=== PATIENT | female | born 1950 | race Caucasian/White ===

== ENCOUNTER 2023-12-18 12:53 | Emergency (ER) | payer MEDICARE, SELFPAY ==
--- NOTE | ~2023-12-18 | XR_ITS ---
EXAMINATION: XR chest 2V DATE: 12/18/2023 13:36 INDICATION: Cough. TECHNIQUE: Frontal and lateral views of the chest were obtained. COMPARISON: None. FINDINGS: There is mild scarring at the lung apices. No pleural effusion or pneumothorax. The heart s ize is normal. There is mild chronic height loss of multiple vertebral bodies. IMPRESSION: 1. Mild scarring at the lung apices. Reviewed, dictated and finalized at location E.
--- NOTE | 2023-12-18 12:59 | ED.URI ---
HPI - URI/Sore Throat General Chief Complaint: Shortness of Breath/Dyspnea Stated Complaint: SOB/Wheezing Time Seen by Provider: 12/18/23 13:07 Source: patient, RN notes reviewed and old records reviewed Mode of arrival: ambulatory Limitations: no limitations History of Present Illness HPI Narrative: 73-year-old female presents to the [facility] with complaints of cough, shortness of breath and wheezing. States that she started not feeling well about a week ago. And started with a cough and took a azithromycin tri pack. Reports the cough has been dry. Reports Tuesday she had a low-grade fever 100.2 and some chills continue to having dry cough. States today she is not feeling any better, finish the tri pack Still reporting a dry nonproductive cough Treatments prior to arrival: ibuprofen and other (Azithromycin) Related Data Home Medications Medication Instructions Recorded Confirmed alprazolam 0.25 mg tablet 0.25 mg PO DAILY 12/18/23 12/18/23 latanoprost 0.005 % eye drops 1 drp EACH EYE HS 12/18/23 12/18/23 levothyroxine 75 mcg tablet 75 mcg PO DAILY 12/18/23 12/18/23 (Synthroid) metoprolol succinate 50 mg 50 mg PO DAILY 12/18/23 12/18/23 tablet,extended release 24 hr pantoprazole 40 mg tablet,delayed 40 mg PO DAILY 12/18/23 12/18/23 release Allergies Allergy/AdvReac Type Severity Reaction Status Date / Time No Known Allergies Allergy Verified 12/18/23 12:56 Review of Systems Review of Systems: All systems reviewed & are unremarkable except as noted in HPI and below Constitutional: Constitutional: Reports no additional constitutional complaints Eyes: Eyes: Reports no additional eye complaints ENT: Reports system reviewed and no additional complaints, except as documented Cardiovascular: Cardiovascular: Reports no additional cardiovascular complaints, Denies chest pain and Denies dyspnea Respiratory: Respiratory: Reports as per HPI, Denies chest congestion, Reports cough and Denies dyspnea Gastrointestinal: Gastrointestinal: Reports no additional gastrointestinal complaints, Denies abdominal pain, Denies nausea and Denies vomiting Musculoskeletal: Musculoskeletal: Reports no additional musculoskeletal complaints Integumentary/Breasts: Skin/Breast: Reports system reviewed and no additional complaints, except as docu Neurologic: Reports system reviewed and no additional complaints, except as documented Psychiatric: Psychiatric: Reports no additional psychiatric complaints Allergic/Immunologic: Allergic/Immunologic: Reports no additional allergic/immunologic complaints [facility] Past Medical History Medical History (Updated 12/18/23 @ 17:13 by Maia Osuna APRN) Anxiety H/O gastroesophageal reflux (GERD) Thyroid disease Comments At the time of my signature, I reviewed and agree with the nursing past medical, surgical, social, and family history. There is no relevant family history pertinent to the patient complaint. Exam Const: General: cooperative, healthy appearing, comfortable, no acute distress, well developed, alert and well nourished Nutritional Appearance: well nourished Orientation/consciousness: patient oriented x3 Limitations: no limitations HENMT: Head: normal to inspection Ears: hearing grossly normal bilaterally, external ears normal, TM's normal bilaterally, EAC's normal, mastoids normal and no periauricular adenopathy Face/Nose/Sinus: Normal external nose present, Normal nares present, Normal nasal mucous membranes and turbinates present, normal facial exam and face symmetric Face and sinus: normal facial exam and face symmetric Throat: posterior oropharynx normal, uvula midline and no uvular edema Eyes: General: appearance normal, both eyes and all related structures Alignment and Position: alignment normal Periorbital: periorbital findings normal Pupils: Equal, round and reactive pupils present EOM: EOMs intact bilaterally Neck: Neck: normal visual inspection, ful
[2023-12-18 13:05] VITALS: BP 170/79; PULSE 62; RESP 18; TEMP 36.6; O2SAT 97
== END 2023-12-18 13:55 | disposition home or self-care (01) ==
PROVIDERS: Emergency Provider Nurse Practitioner; PCP Internal Medicine
DX: J40 Bronchitis, not specified as acute or chronic (principal); K21.9 Gastro-esophageal reflux disease without esophagitis; F41.9 Anxiety disorder, unspecified; E03.9 Hypothyroidism, unspecified; I10 Essential (primary) hypertension; Z96.653 Presence of artificial knee joint, bilateral
CPT/HCPCS: 71046; 99213; G0463

== ENCOUNTER 2024-12-07 08:09 | Emergency (ER) | payer MEDICARE, OTHER, SELFPAY ==
--- NOTE | ~2024-12-07 | XR_ITS ---
Clinical Indication: Cough PA and lateral views of the chest: Comparison: 12/18/2023 Findings: The lungs are clear, without evidence of focal consolidation or pleural effusion. Cardiome diastinal silhouette is within normal limits. Bones and soft tissues are unremarkable. Impression: Normal chest. Reviewed, dictated and finalized at location . Impression: Normal chest.
--- NOTE | 2024-12-07 08:10 | ED_ITS ---
HPI - URI/Sore Throat General Chief Complaint: Upper Respiratory Infection Stated Complaint: cold like Time Seen by Provider: 12/07/24 08:21 Source: patient, RN notes reviewed and old records reviewed Mode of arrival: ambulatory Limitations: no limitations History of Present Illness HPI Narrative: 74-year-old female presents to the [facility] with complaints of a cough and cold-like symptoms that started last tuesday, 5 days. Patient states that she took a Z-Cheng that she had laying around. Reports fevers as high as 99.6. Patient reports wheezing and drainage. Related Data Home Medications Medication Instructions Recorded Confirmed Last Taken Type alprazolam 0.25 mg tablet 0.25 mg PO DAILY 12/18/23 12/07/24 Unknown History latanoprost 0.005 % eye drops 1 drp EACH EYE HS 12/18/23 12/07/24 Unknown History levothyroxine 75 mcg tablet 75 mcg PO DAILY 12/18/23 12/07/24 Unknown History (Synthroid) metoprolol succinate 50 mg 50 mg PO DAILY 12/18/23 12/07/24 Unknown History tablet,extended release 24 hr pantoprazole 40 mg tablet,delayed 40 mg PO DAILY 12/18/23 12/07/24 Unknown History release Allergies Allergy/AdvReac Type Severity Reaction Status Date / Time No Known Allergies Allergy Verified 12/07/24 08:10 Review of Systems Review of Systems: All systems reviewed & are unremarkable except as noted in HPI and below Constitutional: Constitutional: Reports no additional constitutional complaints ENT: Reports as per HPI Cardiovascular: Cardiovascular: Reports no additional cardiovascular complaints, Denies chest pain and Denies dyspnea Respiratory: Respiratory: Reports as per HPI, Denies chest congestion, Reports cough, Denies dyspnea and Reports wheezing Musculoskeletal: Musculoskeletal: Reports no additional musculoskeletal complaints Integumentary/Breasts: Skin/Breast: Reports system reviewed and no additional complaints, except as docu PMFSH Past Medical History Medical History H/O gastroesophageal reflux (GERD) Anxiety Thyroid disease Comments At the time of my signature, I reviewed and agree with the nursing past medical, surgical, social, and family history. There is no relevant family history pertinent to the patient complaint. Exam Const: General: cooperative, healthy appearing, comfortable, no acute distress, well developed, alert and well nourished Nutritional Appearance: well nourished Orientation/consciousness: patient oriented x3 Limitations: no limitations HENMT: Head: normal to inspection Ears: hearing grossly normal bilaterally, external ears normal, TM's normal bilaterally, EAC's normal, mastoids normal and no periauricular adenopathy Mouth: Yes Normal oral and palatal mucosa present, Yes lip normal, Yes tongue normal and Yes moist mucous membranes Throat: posterior oropharynx normal, uvula midline, postnasal drainage and no uvular edema Eyes: General: appearance normal, both eyes and all related structures Alignment and Position: alignment normal Neck: Neck: normal visual inspection, full ROM, no lymphadenopathy and no meningeal signs Chest: Chest palpation & inspection: normal inspection of the chest Resp: Effort & Inspection: normal respiratory effort and able to speak in complete sentences Auscultation: no crackles, no rales, no rhonchi and wheezes expiratory wheezes and scattered wheezes Cardio: Rate: regular rate Skin: General skin exam: normal color and no rashes or lesions noted Neuro: General: patient oriented x3, gait normal, moves all extremities and no meningeal signs Cognition (Neuro): normal cognition Speech: normal speech Gait exam (Neuro): Normal gait present Extrem: General: normal to inspection, full ROM, capillary refill normal and normal gait Psych: Appearance: grossly normal and well kempt Mental Status: mental status grossly normal Speech and movement: Normal speech and movement present and Clear speech present Affect: normal affect Attitude: cooperative Course Course Level of Care: Express Care Visit Vital Signs Vital signs: Vital Signs Temperature 98.4 F 12/07/24 08:19 Pulse Rate 78 12/07/24 08:19 Respiratory Rate 16 12/07/24 08:19 Blood Pressure 144/66 H 12/07/24 08:19 Pulse Oximetry 94 12/07/24 08:19 Oxygen Delivery Room Air 12/07/24 08:19 Temperature 98.4 F 12/07/24 08:19 Pulse Rate 78 12/07/24 08:19 Respiratory Rate 16 12/07/24 08:19 Blood Pressure 144/66 H 12/07/24 08:19 Pulse Oximetry 94 12/07/24 08:19 Oxygen Delivery Room Air 12/07/24 08:19 Reviewed MDM - URI/Sore Throat MDM Narrative Medical decision making narrative: Patient sitting in exam room. Patient is nontoxic, vitals are stable. X-ray showed no acute finding. Patient has already taken azithromycin Will prescribe albuterol and prednisone. Patient appropriate for outpatient treatment with close follow-up Differential Diagnosis Differential diagnosis: Likely upper respiratory infection, otitis media, sinusitis, viral infection, bronchitis, influenza and pharyngitis Imaging Data Radiologist's impression: Clinical Indication: Cough PA and lateral views of the chest: Comparison: 12/18/2023 Findings: The lungs are clear, without evidence of focal consolidation or pleural effusion. Cardiomediastinal silhouette is within normal limits. Bones and soft tissues are unremarkable. Impression: Normal chest. Critical Care Time Critical Care Time Critical Care Time: No Discharge Plan Discharge Clinical Impression: Bronchitis Patient Disposition: Home Condition: Stable Instructions: Antibiotic Form, Acute Bronchitis (ED) Additional Instructions: Your chest x-ray did not show pneumonia. It is very important to treat your symptoms. Drink plenty of water, Gatorade, Pedialyte, ice pops or Jell-O. -Alternate Tylenol and Motrin per package directions for fever or pain. You can alternate every 4 hours -Antihistamine medication such as Zyrtec/Claritin/Dianne during the day can help improve symptoms. -doing daily nasal irrigations can help relieve pressure your sinuses. Things like a Neti pot -Use Flonase twice a day for 5 days then daily to help reduce the inflammation and dry up your sinuses. -You can also use Mucinex. Be sure to drink plenty of water with this medication at least 8 ounces with every dose and it is important to drink 8 to 10 glasses of water per day. Water is a natural decongestant -Eat and drink things that are easy to swallow, like tea or soup, or popsicles. -Oral rinses such as: Salt water gargles and/or may use topical anesthetic (eg. Chloraseptic spray) or lozenges to relieve dryness or throat pain). -Frequent hand washing or hand solution make up operator is one of the best ways to prevent spread of infection. -Using a vaporizer or humidifier at night will also help thin secretions and help with coughing up phlegm. -Follow up with primary care provider in 7-10 days if condition is not improving - For new or worsening symptoms go directly to the nearest ER Patient Language: Venezuelan Prescriptions: New prednisone 20 mg tablet See Rx Instructions .Route .COMPLEX Qty: 9 0RF Rx Instructions: Take 40 mg daily for 3 days, 20 mg daily for 3 days albuterol sulfate 90 mcg/actuation HFA aerosol inhaler 2 puff inhalation QID PRN (Reason: shortness of breath or wheezing) Qty: 6.7 0RF (DME) Aerochamber MV Spacer See Rx Instructions .Route Qty: 1 0RF Rx Instructions: As directed No Action latanoprost 0.005 % drops 1 drp EACH EYE HS alprazolam 0.25 mg tablet 0.25 mg PO DAILY metoprolol succinate 50 mg tablet extended release 24 hr 50 mg PO DAILY levothyroxine [Synthroid] 75 mcg Tablet 75 mcg PO DAILY pantoprazole 40 mg tablet,delayed release (DR/EC) 40 mg PO DAILY Follow-up/Referrals: Nita,Cortez Castañeda MD [Primary Care Provider] - 1 Week ([facility] care follow up blood pressure check 144/66) Time of Disposition: 08:55
--- OUTSIDE RECORDS SUMMARY | 2024-12-07 08:11 | XMS_ITS | CONTINUITY OF CARE DOCUMENT ---
Author Name veronica martin Address Unknown Organization [facility] Address [address] [place] [address] [address] [place] [address] Phone [phone] Care Team Providers Care Lifestyle Block Farmer Name Role Phone veronica martin Unavailable Unavailable
--- OUTSIDE RECORDS SUMMARY | 2024-12-07 08:11 | XMS_ITS | Clinical Summary ---
Author Organization [facility] Address [address] [place] [address] Phone Care Team Providers Care Low Pressure Boiler Tender Name Role Phone Cortez Moya MD Primary Care Provider [phone] Encounters Date Type Department Care Team Description 12/04/2024 External Device Data ST[facility] ABSTRACTION Provider, Abstract 11/27/2024 11:15 AM CDT Ancillary Procedure [facility] [address] [place] [address] Cortez Moya MD Encounter for screening mammogram for breast cancer 09/12/2024 External Device Data STL ABSTRACTION Provider, Abstract from Last 3 Months Social History Tobacco Use Types Packs/Day Years Used Date Smoking Tobacco: Never Assessed Comments Unknown Sex and Gender Information Value Date Recorded Sex Assigned at Not on file Legal Sex Female 1:27 PM CDT Gender Identity Not on file Sexual Orientation Not on file Plan of Treatment Health Maintenance Due Date Last Done Comments DTAP/TDAP/TD VACCINES (1 - Tdap) 1969 COLORECTAL SCREENING 11/01/1995 Colorectal Cancer Screening 11/01/1995 FIT-DNA Q 3 years 11/01/1995 FIT/FOBT Q 1 year 11/01/1995 Flex Sig/CT Colonography Q 5 years 11/01/1995 PNEUMOCOCCAL VACCINE 50+ YEA RS (1 of 1 - PCV) 2000 INFLUENZA VACCINE (#1) 2024 , 05/06/2020, 05/03/2018, Additional history exists COVID-19 Vaccine (2023-2 5 season) 2024 09/30/2020, 08/28/2020 RSV VACCINE (60+ or ) (1 - 1-dose 75+ series) 2025 BREAST CANCER SCREENING 11/27/2025 11/28/19, 09/16/2023, 07/06/2022, Additional history exists OSTEOPOROSIS SCREENING 11/16/2026 11/16/2021, 2021 ZOSTER VACCINE Completed 03/24/2019, 11/22, 02/07/2017 Procedures Procedure Name Priority Date/Time Associated Diagnosis Comments MAMMO 3D SHELLIE SCREEN BILAT W OR WO CAD Routine 11/27/2024 10:55 AM CDT Encounter for screening mammogram for breast cancer from Last 3 Months Results * MAMMO 3D SHELLIE SCREEN BILAT W OR WO CAD (11/27/2024 10:55 AM CDT) Anatomical Region Laterality Modality Breast Bilateral Mammography 11/27/2024 10:5 6 AM CDT Narrative 11/27/2024 11:03 AM CDT EXAM: MAMMO 3D SHELLIE SCREEN BILAT W OR WO CAD DATE: 11/27/2024 HISTORY: Encounter for screening mammogram for breast cancer COMPARISON: 09/16/2023 DENSITY: Scattered fibroglandular densities. FINDINGS: Bilateral screening mammograms with tomosynthesis were performed with standard CC and MLO views obtained. Computer assisted detection was utilized. Little significant change is noted. The parenchymal pattern is essentially unchanged. Scattered nodular masses in both breasts appear stable in size and number. There are also stable bilateral breast calcifications including secretory calcifications. No new dominant mass, architectural distortion, nipple retraction, skin thickening, or suspicious calcifications are seen. ASSESSMENT: BIRADS Category 2: Benign finding(s). Digital technology was employed plus computer-aided detection software was utilized in interpretation of these images. us Cortez Moya MD MAMMO ORDERABLES Final Result from Last 3 Months Insurance [id number] BLUE ACCESS/TRUE BLUE PPO MEDICARE PART A AND B [facility] SUPP [facility] [id number] [facility] Care Teams Low Pressure Boiler Tender Relationship Specialty Start Date End Date Cortez Moya MD [facility] - General 07/11/15
--- OUTSIDE RECORDS SUMMARY | 2024-12-07 08:11 | XMS_ITS | Encounter Summary ---
Author Organization [facility] Address [address] [place] [address] Care Team Providers Care Print Binding And Finishing Worker Name Role Phone Cortez Moya MD Primary Care Provider Encounter Details Date Type Department Care Team (Late st Contact Info) Description 11/28/2024 Results Follow-Up [facility] [address] [address] Cortez Moya MD [address] [place] [address] [address] [place] [address] Social History Tobacco Use Types Packs/Day Years Used Date Smoking Tobacco: Former Cigarettes 0.5 13 1 967 - 1980 Passive Smoke Exposure: Past Smokeless Tobacco: Never Alcohol Use Standard Drinks/Week Comments Yes 5 (1 standard drink = 0.6 oz pur e alcohol) AUDIT-C Answer Date Recorded Q1: How often do you have a drink containing alc ohol? 2-3 times a week 12/01/2022 Q2: How many drinks containi ng alcohol do you have on a typical day when you are drinking? 1 or 2 12/01/2022 Q3: How often do you have si x or more drinks on one occasion? Never 12/01/2022 Personal Safety Answer Date Recorded Have you ever been in or are you currently in a harmful physical or emotional relationship or is someone making you feel afraid or unsafe? Denies 12/01/2022 Comments No Sex and Gender Information Value Date Recorded Sex Assigned at Not on file Legal Sex Female 9:03 PM QUALITY CONTROL INSPECTOR HEADING Gender Identity Female 05/27/2021 3:39 PM CDT Sexual Orientation Straight 05/27/2021 3: 39 PM CDT Occupation Industry Job Start Date Job End Date retired Not on file Not on file Not on file documented as of this encounter Plan of Treatment Not on file documented as of this encounter Visit Diagnoses Not on filedocumented in this encounter Care Teams Print Binding And Finishing Worker Relationship Specialty Start Date End Date Cortez Moya MD PCP - General 11/17/17 documented as of this encounter
--- OUTSIDE RECORDS SUMMARY | 2024-12-07 08:11 | XMS_ITS | Encounter Summary ---
Author Organization [facility] Address [address] [place] [address] Care Team Providers Care Usability Architect Name Role Phone Unavailable Primary Care Provider Unavailabl e Encounter Details Date Type Department Care Team (Late st Contact Info) Description 07/14/2023 Lab Requisition [facility] - [facility] Lab [address] [facility] [place] [address] Linda Lombardi DO [address] [facility] [address] [place] [address] Social History Tobacco Use Types Packs/Day Years Used Date Smoking Tobacco: Never Assessed Comments Unknown Sex and Gender Information Value Date Recorded Sex Assigned at Not on file Legal Sex Female 6:25 PM AIRWAYS OPERATIONS SPECIALIST Gender Identity Not on file Sexual Orientation Not on file documented as of this encounter Plan of Treatment Not on file documented as of this encounter Procedures Procedure Name Priority Date/Time Associated Diagnosis Comments DERMATOPATHOLOGY Routine 07/14/2023 9:36 AM AIRWAYS OPERATIONS SPECIALIST documented in this encounter Results * DERMATOPATHOLOGY (07/14/2023 9:36 AM AIRWAYS OPERATIONS SPECIALIST) Case Report Dermatopathology Report Case: [id number] Authorizing Provider: Linda Lombardi DO Collected: 07/14/2023 09:36 AM Ordering Location: [facility] Received: 07/14/2023 04:05 PM Pathologist: Angella Richardson MD Specimen: Skin, right upper back 3 12:49 PM AIRWAYS OPERATIONS SPECIALIST DERMATOPATHOLOGY LABORATORY Final Diagnosis Specimen A. SKIN, right upper back: LICHEN PLANUS-LIKE KERATOSIS (BENIGN LICHENOID KERATOSIS) (L82.1) 3 12:49 PM AIRWAYS OPERATIONS SPECIALIST DERMATOPATHOLOGY LABORATORY Clinical History LPLK R/O NMSC 3 12:49 PM [facility] DERMATOPATHOLOGY LABORATORY Gross Description Specimen A: Received is one formalin filled container labeled with the patient's name and designated right upper back. The specimen consists of a shave biopsy measuring 3x3x1 mm. Jar 0. 3 12:49 PM [facility] DERMATOPATHOLOGY LABORATORY Microscopic Description Specimen A. SKIN, right upper back: The epidermis is mildly acanthotic. There is a lichenoid infiltrate with vacuolar changes of basilar keratinocytes and scattered necrotic keratinocytes. 3 12:49 PM [facility] DERMATOPATHOLOGY LABORATORY Disclaimer An external and internal positive and negative controls are appropriate for the histochemical, immunohistochemical and immunofluorescence stain(s) in this case (if any), except where stated explicitly. The performance characteristics of the stain(s) cited in this report were developed and its performance characteristic determined by the Dermatopathology Laboratory at [facility], directed by Dr. Jodee Stewart. These tests need not be, and therefore are not, approved by the [place] Food and Drug Administration. The tests are used for clinical purposes. Billing Codes Specimen Charges Stain Charges 64954 1 3 12:49 PM [facility] DERMATOPATHOLOGY LABORATORY Embedded Images 3 12:49 PM [facility] DERMATOPATHOLOGY LABORATORY Pathology/Cytolo gy TISSUE SPECIMEN FROM SKIN / Unknown 07/14/2023 9:36 AM AIRWAYS OPERATIONS SPECIALIST 07/14/2023 4:05 PM AIRWAYS OPERATIONS SPECIALIST us Linda Lombardi DO LAB - PATHOLOGY/CYTOLOGY ORDERABLES Final Result DERMATOPATHOLOGY LABORATORY [facility] - Department of Dermatology [address] [phone] documented in this encounter Visit Diagnoses Not on filedocumented in this encounter
--- OUTSIDE RECORDS SUMMARY | 2024-12-07 08:11 | XMS_ITS | Clinical Summary ---
Author Organization [facility] Address [address] [place] [address] Care Team Providers Care Security Guards Dispatcher Name Role Phone Cortez Moya MD Primary Care Provider [phone] Allergies No known active allergies Medications latanoprost (XALATAN) 0.005 % ophthalmic solutionIndicat ions:open angle glaucoma Administer 1 drop into both eyes nightly 9 Active Lactobac no.41/Bifidobac t no.7 (PROBIOTIC-10 ORAL)Indication s:supplement Take 1 capsule by mouth every morning Active cholecalciferol (VITAMIN D-3) 2,000 unit tabletIndicatio ns:Prevention of Vitamin D Deficiency Take 3 tablets (6,000 Units total) by mouth every morning Active ascorbic acid (VITAMIN C ORAL)Indication s:supplement Take 1 tablet by mouth every morning Active vitamin b complex tabletIndicatio ns:Vitamin Deficiency Take 1 tablet by mouth every morning Active metoprolol XL (TOPROL-XL) 50 mg extended release tablet TAKE 1 TABLET DAILY 90 tablet [address] (PROTONIX) 40 mg EC tablet TAKE 1 TABLET DAILY 90 tablet 3 4 Active Synthroid 75 mcg tablet TAKE 1 TABLET BUFFER COPPER BEFORE BREAKFAST 90 tablet 2 4 Active ALPRAZolam (XANAX) 0.25 mg tablet Take 1 tablet (0.25 mg total) by mouth 2 (two) times a day 180 tablet 4 Active azithromycin (ZITHROMAX) 250 mg tabletIndicatio ns:Upper Respiratory/MANDIE NT Infection Take 2 tabs (500 mg) by mouth today, than 1 tab (250 mg) daily for 4 days. 6 tablet 5 Active Active Problems Problem Noted Date Diagnosed Date Lumbar radiculopathy 05/17/2023 Assessment & Plan (11/29/2023 10:29 AM CDT): Doing better with exercise and stretching. Continues to ride a bike. Myogenic ptosis of eyelid of both eyes 3 Overview (11/03/2022): Added automatically from request for surgery [id number] Assessment & Plan (01/17/2023 10:22 PM CDT): Krystal Roy is doing well after Bilateral Upper Eyelid Ptosis Repair - Bilateral on 12/01/2022. She demonstrates excellent healing and has been released from my care and has been instructed to continue comprehensive eye care with Dr. Shorty Jones MD. Assessment & Plan (11/10/2022 9:00 PM CDT): Bilateral upper eyelid ptosis with symptomatic visual obstruction. Risks, benefits and alternatives were discussed. Risks of surgery included but were not limited to pain, infection, bleeding, scarring, eyelid asymmetry, need for additional procedures, anesthetic morbidity. Following this discussion, the patient wishes to proceed with bilateral upper eyelid ptosis repair. We will schedule this in the near future. Peripheral visual field defect of both eyes 10/23 Overview (11/03/2022): Added automatically from request for surgery [id number] HTN (hypertension) 01/27/2021 Assessment & Plan (11/29/2023 10:29 AM CDT): BP at target. Continue medication for target directed therapy Hypothyroidism 01/27/2021 Assessment & Plan (11/29/2023 10:30 AM CDT): Check labs. No signs or symptoms of thyroid disease Risk factors for obstructive sleep apnea 021 History of arthroplasty of right knee 01/13/2021 Chronic pain of left knee 01/13/2021 Primary osteoarthritis of left knee 01/12/2021 Overview (01/12/2021): Added automatically from request for surgery [id number] Primary osteoarthritis of right knee 08/06/2019 Overview (08/06/2019): Added automatically from request for surgery [id number] External hemorrhoids 07/03/2015 Hemorrhoids 07/03/2015 Dysphonia 10/09/2014 Assessment & Plan (11/29/2023 10:29 AM CDT): Stable without change. Constipation 06/26/2012 Internal hemorrhoids with complication 1 Encounters Date Type Department Care Team Description 11/28/2024 Results Follow-Up [facility] [address] [place] [id number] Cortez Moya MD 11/27/2024 Orders Only [facility] [address] [place] [facility] [place] [id number] Cortez Moya MD from Last 3 Months Immunizations Immunization Administration Dates Next Due Influenza, Quadrivalent, Hig h Dose, Preservative Free, Intrr 04/17/2021,05/06/2020 Influenza, Trivalent, High D ose, Split, Preservative Free, Intramuscular 05/03/2018,05/29/2017,05/29/2015,04/25 Influenza, Trivalent, Preser vative Free, Intramuscular 04/23/2016 Influenza, Unspecified 04/27/2023 Moderna SARS-CoV-2 Monovalen t Vaccination (12+ YRS) 09/30/2020,08/28/2020 ZOSTER LIVE 02/07/2017 ZOSTER Recombinant 03/24/2019,12/05/2018 Surgical History Surgery Date Site/Laterality Comments PA APPENDECTOMY 07/25/1999 - 07/24/2000 Appendectomy - (Added by TW Conv) HYSTERECTOMY 07/25/2008 - 07/24/2009 Total Hysterectomy - (Added by TW Conv) CHOLECYSTECTOMY 07/25/1997 - 07/24/1998 BUNIONECTOMY 07/25/2008 - 07/24/2009 Bilateral TONSILLECTOMY 07/25/1956 - 07/24/1957 JOINT REPLACEMENT 05/25/2021 Right partial KNEE ARTHROPLASTY 01/22/2021 Left patial CATARACT EXTRACTION 06/09/2022 Left PARTIAL KNEE ARTHROPLASTY 10/22/2019 Right CATARACT EXTRACTION 06/30/2022 Right CHOLECYSTECTOMY 07/25/1997 - 07/24/1998 Medical History Medical History Date Comments Diverticulosis of intestine without perforation or abscess without bleeding Diverticular d isease - (Added by TW Conv) Anxiety Gastric reflux Hiatal hernia Hypertension Thyroid disease Osteoporosis OA (osteoarthritis) GERD (gastroesophageal reflux disease) Spasmodic dysphonia Hiatal hernia Essential tremor manifest in voi ce Family History Medical History Relation Name Comments Arthritis Father Diabetes Father Heart disease Father Family history of cardiac disorder - (Added by TW Conv) Arthritis Mother Diabetes Mother Essential Tremor Mother Family hist ory of benign essential tremor - (Added by TW Conv) Gout Mother Heart disease Mother Family history of cardiac disorder - (Added by TW Conv) Hypertension Mother Stroke Mother Heart disease Other 1 Family history of cardiac disorder - (Added by TW Conv) Stroke Other 2 Family history of cerebrovascular accident - (Added by TW Conv) Arthritis Sister Essential Tremor Sister Family hist ory of benign essential tremor - (Added by TW Conv) Alcohol abuse Son Gout Son Anesthesia problems Neg Hx Malig Hypertension Neg Hx Malig Hyperthermia Neg Hx Pseudochol deficiency Neg Hx Relation Name Status Comments Father Mother Other 1 Other 2 Sister Son Social History Tobacco Use Types Packs/Day Years Used Date Smoking Tobacco: Former Cigarettes 0.5 13 1 967 - 1979 Passive Smoke Exposure: Past Smokeless Tobacco: Never Tobacco Cessation:Counseling Given: Not Answered Alcohol Use Standard Drinks/Week Comments Yes 5 [...] on file Legal Sex Female 9:03 PM [employer]LECTIONS ATTORNEY Gender Identity Female 05/27/2021 3:39 PM CDT Sexual Orientation Straight 05/27/2021 3: 39 PM CDT Occupation Industry Job Start Date Job End Date retired Not on file Not on file Not on file Obstetrics History Last Filed Vital Signs Vital Sign Reading Time Taken Comments Blood Pressure 156/87 06/12/2024 9:22 AM [employer]LECTIONS ATTORNEY Pulse 62 06/12/2024 9:22 AM COLLECTIONS ATTORNEY Temperature 36 C (96.8 F) 12/01/2022 2:10 PM CDT Respiratory Rate 18 12/01/2022 2:50 PM CDT Oxygen Saturation 97% 12/01/2022 2:50 PM CDT Inhaled Oxygen Concentration - - Weight 93.7 kg (206 lb 9.6 oz) 06/12/2024 9:22 A M [employer]LECTIONS ATTORNEY Height 170.2 cm (5' 7 ) 06/12/2024 9:22 AM COLLECTIONS ATTORNEY Body Mass Index 32.36 06/12/2024 9:22 AM COLLECTIONS ATTORNEY Plan of Treatment Health Maintenance Due Date Last Done Comments Depression Screening 1950 Hepatitis C Screening 1950 DTaP/Tdap/Td Vaccine (1 - Tdap) 1961 Hepatitis B Screening 1968 Pneumococcal vaccine 65+ (1 of 1 - PCV) 2000 Well Visit 65+ 11/01/2015 Osteoporosis Screening-Bone Density Scan 11/17/2023 11/16/2021, 11/16/2021 Fall Risk Assessment 12/02/2023 12/01/2022 Covid-19 Vaccine (2023-2 5 season) 2024 05/19/2021, 09/30/2020, 08/28/2020 Breast Cancer Screening-Mammogram 09/16/2024 09/16/2023, 09/16/2023, 07/09/2022, Additional history exists Influenza Vaccine (Season Ended) 2025 04/27/2023, 04/17/2021, 05/06/2020, Additional history exists Colon Cancer Screening-Colonoscopy 06/04/2026 Zoster Vaccine Completed 03/24/2019, 11/22, 02/07/2017 Medical Devices Implanted Type Area Chief Order Dispatcher Device Identifier Shelf Expiration Date Model / Serial / Lot [employer] 3122-040 Smartset Medium Viscosity Cement 40gm Bone Sterile - Sna - [id number] Implanted:Qty: 1 on 02/06/2021 by Fredy Whiting MD at [facility] Bone Cement Left: Knee [employer] 04/23/2022 3122-040 / NA / [id number] [employer] 6197-9-010 Simplex P Full Dose Radiopaque Preblend Cement Bone Tobramycin - Sna - [id number] Implanted:Qty: 1 on 06/12/2021 by Fredy Whiting MD at [facility] Bone Cement Right: Knee [employer] 08/24/2022 6197-9-0 10 / NA / [id number] [employer] Lens Tecnis Eyhance Iol [id number] - [id number] - [id number] Implanted:Qty: 1 on 06/09/2022 by Shorty Jones MD at [facility] Lens Left: Eye [employer] [id number] 10/08/2024 [id number] 20 / [id number] / Description:DIB00 22.0D Left eye [employer] Lens Tecnis Eyhance Iol [id number] - [id number] - [id number] Implanted:Qty: 1 on 06/30/2022 by Shorty Jones MD at [facility] Lens Right: Lens [employer] [id number] 04/25/2025 [id number] 25 / [id number] / [employer] [id number] Insert Tibial 5 9mm Knee X3 Unicompartmental [place] Nile - Sna - [id number] Implanted:Qty: 1 on 02/06/2021 by Fredy Whiting MD at [facility] Other - see comments Left: Knee [employer] [id number] 10/16/2025 597346-6 / NA / [id number] Description:Implant pause pe rformed prior to implant being opened to sterile field [employer] [id number] Bsplt Tibial 5 Knee Left Medial Right Lat Mck System - Sna - [id number] Implanted:Qty: 1 on 02/06/2021 by Fredy Whiting MD at [facility] Other - see comments Left: Knee [employer] 11/21/2025 [id number] / NA / [id number] Description:Implant pause pe rformed prior to implant being opened to sterile field [employer] [id number] Cmpnt Fem 6 Std Knee Condyle Left Medial Right Lat - Sna - [id number] Implanted:Qty: 1 on 02/06/2021 by Fredy Whiting MD at [facility] Other - see comments Left: Knee [employer] [id number] / NA / [id number] Description:Implant pause pe rformed prior to implant being opened to sterile field [employer] [id number] Insert Mck Tibial X3 Onlay Size 5 X 9mm - Sna - [id number] Implanted:Qty: 1 on 06/12/2021 by Fredy Whiting MD at [facility] Other - see comments Right: Knee [employer] [id number] 10/29/2025 517898-1 -E / NA / [id number] Description:Implant pause pe rformed prior to implant being opened to sterile field. [employer] [id number] Bsplt Tibial Restoris 5 Knee Right Medial Left Lat Strl Mck - Sna - [id number] Implanted:Qty: 1 on 06/12/2021 by Fredy Whiting MD at [facility] Other - see comments Right: Knee [employer] 12/20/2024 [id number] / NA / [id number] Description:Implant pause pe rformed prior to implant being opened to sterile field. [employer] [id number] Cmpnt Fem 6 Std Knee Condyle Right Medial Left Lat - Sna - [id number] Implanted:Qty: 1 on 06/12/2021 by Fredy Whiting MD at [facility] Other - see comments Right: Knee [employer] 11/12/2025 [id number] / NA / [id number] Description:Implant pause pe rformed prior to implant being opened to sterile field. Explanted Type Area Chief Order Dispatcher Device Identifier Shelf Expiration Date Model / Serial / Lot [employer] [id number] 4mm 140mm Knee Straight Pin Fixation Sterile - Sna - [id number] Explanted:Qty: 1 on 06/12/2021 at [facility] Pin Right: Knee [employer] [id number] 02/17/2026 [id number] / NA / [id number] Description:Used for procedu re and removed at end of case [employer] [id number] 4mm 110mm Pin Fixation Sterile - Sna - [id number] Explanted:Qty: 1 on 06/12/2021 by Fredy Whiting MD at [facility] Pin Right: Knee [employer] [id number] 10/16/2025 [id number] / NA / [id number] Description:Used for procedu re and removed at end of case Procedures Procedure Name Priority Date/Time Associated Diagnosis Comments SCAN - RADIOLOGY/IMAGING 11/27/2024 11:19 AM CDT DEXA AXIAL SKELETON BONE DENSITY 1 OR MORE SITES Schedule Routine, Read Routine (OP Routine) 11/16/2021 3:36 PM CDT Screening for lipid disorders Post-menopausal from Last 3 Months or Most Recently Relevant to Health Maintenance Results * SCAN - RADIOLOGY/IMAGING (11/27/2024 11:19 AM CDT) Anatomical Region Laterality Modality Other us Cortez Moya MD Final Result * Dexa Axial Skeleton Bone Density 1 or 2 Site (11/16/2021 3:36 PM CDT) Anatomical Region Laterality Modality Body N/A Digital Radiogra phy 11/16/2021 3:48 PM CDT Impressions 11/16/2021 3:54 PM CDT 1. The bone mineral density of the lumbar spine is normal. 2. The bone mineral density of the left femoral neck is mildly decreased. 3. The bone mineral density of the left total hip is normal. 4. Overall, the above findings are diagnostic of low bone mass (osteopenia) by WHO criteria. 5. Based on the FRAX fracture risk model, the 10-year probability for major osteoporotic fracture is 12% and that for hip fracture is 2.6%. This 10-year fracture risk estimate was calculated using the risk factors noted in the history above, along with the femoral neck bone density. FRAX is intended to help guide treatment decisions in men over age 50 and postmenopausal women with low bone mass (osteopenia). The National Osteoporosis Foundation (NOF) recommends that FDA-approved medical therapies be considered in postmenopausal women and men age 50 years and older with osteoporosis and those with low bone mass whose 10-year fracture probability by FRAX is >= 20% for major osteoporotic fracture or >= 3% for hip fracture. However, all treatment decisions require clinical judgment and consideration of individual patient factors, including patient preferences, comorbidities, previous drug use, risk factors not captured in the FRAX model (e.g., frailty, falls, vitamin D deficiency, increased bone turnover, interval significant decline in bone density) and possible under- or overestimation of fracture risk by FRAX. General comments regarding interpretation of bone density measurements: A) In children, premenopausal woman and males under age 50 not at increased risk for fractures only Z-scores, not T-scores are used to indicate risk. A Z-score above -2.0 is defined as within the expected range for age and Z-score at or less than -2.0 is below the expected range for age . A Z-score below the expected range for age in a patient with recent fractures and/or chronic corticosteroid treatment is consistent with a diagnosis of osteoporosis. B) In post menopausal women and males over 50, comparison of the measured bone mineral density with the average value in young normal subjects (the T-score ) has been found to be useful in assessing fracture risk. Fracture risk approximately doubles for each 1.0 standard deviation (SD) in individual's hip or spine bone mineral density is below the average value of young normal subjects. The World Health Organization (WHO) has defined T-scores of -1.0 to -2.5 as diagnostic of low bone mass (OSTEOPENIA), and T-scores of -2.5 or lower to be diagnostic of OSTEOPOROSIS, based on the site of lowest bone density. Note that there will be a change in reporting format and reference databases as patients move from the younger population (group A) to the older population (group B) The National Osteoporosis Foundation (www.nof.org) recommends adequate intake of calcium and vitamin D and regular weight-bearing exercise in all patients. They recommend pharmacologic treatment in postmenopausal women and men age 50 and older presenting with any of the followin) Osteoporosis, after appropriate evaluation to exclude secondary causes. 2) A hip or vertebral (clinical or radiographic) fracture, regardless of the bone density. 3) Low bone mass (Osteopenia) and one or more of: other prior fractures, secondary causes associated with high risk of fracture (such as glucocorticoid use or total immobilization), or computed high risk of fracture (10-yr probability of hip fracture >= 3% or a 10-yr probability of any major osteoporosis-related fracture >= 20% based on the [place].-adapted WHO algorithm), available at http://www.shef.ac.uk/FRAX). Dictated by: Devan Capone MD PHD The radiology attending physician has personally reviewed this study, and had reviewed and/or edited this written report and agrees with it. Electronically signed by: Kyaw Novak M.D. Narrative 11/16/2021 3:54 PM CDT BONE DENSITOMETRY OF THE SPINE AND HIP DATE OF STUDY: 11/16/2021 HISTORY: 71-year-old postmenopausal woman presenting for osteoporosis screening. She is being treated with vitamin D. Evaluate bone mineral density. Additional risk factors for fracture: none. FINDINGS (SPINE): The bone mineral density of L1, L2, L3 was assessed by dual-energy x-ray absorptiometry. L4 was excluded secondary to T score difference and degenerative sclerotic change. The average bone mineral density within this region is 1.063 gm/sq-cm. This is 2.5 standard deviations above the mean of the average bone mineral density for age- and gender-matched subjects (the Z-score). It is 0.4 standard deviations above the mean peak bone mineral density in young adults (the T-score). FINDINGS (FEMORAL NECK): The bone mineral density of the left femoral neck was assessed by dual-energy x-ray absorptiometry. The average bone mineral density within the femoral neck region is 0.612 gm/sq-cm. This is 0.3 standard deviations below the mean of the average bone mineral density for age- and gender-matched subjects (the Z-score). It is 2.1 standard deviations below the mean peak bone mineral density in young adults (the T-score). FINDINGS (TOTAL HIP): The bone mineral density of the left hip was assessed by dual-energy x-ray absorptiometry. The average bone mineral density within the total hip region is 0.849 gm/sq-cm. This is 0.8 standard deviations above the mean of the average bone mineral density for age- and gender-matched subjects (the Z-score). It is 0.8 standard deviations below the mean peak bone mineral density in young adults (the T-score). SUMMARY OF CURRENT RESULTS: Region BMD T-score Z-score AP Spine (L1, L2, L3) 1.063 0.4 2.5 Femoral Neck (Left) 0.612 -2.1 -0.3 Total Hip (Left) 0.849 -0.8 0.8 Procedure Note Kyaw Novak MD - 11/16/2021 BONE DENSITOMETRY OF THE SPINE AND HIP DATE OF STUDY: 11/16/2021 HISTORY: 71-year-old postmenopausal woman presenting for osteoporosis screening. She is being treated with vitamin D. Evaluate bone mineral density. Additional risk factors for fracture: none. FINDINGS (SPINE): The bone mineral density of L1, L2, L3 was assessed by dual-energy x-ray absorptiometry. L4 was excluded secondary to T score difference and degenerative sclerotic change. The average bone mineral density within this region is 1.063 gm/sq-cm. This is 2.5 standard deviations above the mean of the average bone mineral density for age- and gender-matched subjects (the Z-score). It is 0.4 standard deviations above the mean peak bone mineral density in young adults (the T-score). FINDINGS (FEMORAL NECK): The bone mineral density of the left femoral neck was assessed by dual-energy x-ray absorptiometry. The average bone mineral density within the femoral neck region is 0.612 gm/sq-cm. This is 0.3 standard deviations below the mean of the average bone mineral density for age- and gender-matched subjects (the Z-score). It is 2.1 standard deviations below the mean peak bone mineral density in young adults (the T-score). FINDINGS (TOTAL HIP): The bone mineral density of the left hip was assessed by dual-energy x-ray absorptiometry. The average bone mineral density within the total hip region is 0.849 gm/sq-cm. This is 0.8 standard deviations above the mean of the average bone mineral density for age- and gender-matched subjects (the Z-score). It is 0.8 standard deviations below the mean peak bone mineral density in young adults (the T-score). SUMMARY OF CURRENT RESULTS: Region BMD T-score Z-score AP Spine (L1, L2, L3) 1.063 0.4 2.5 Femoral Neck (Left) 0.612 -2.1 -0.3 Total Hip (Left) 0.849 -0.8 0.8 IMPRESSION: 1. The bone mineral density of the lumbar spine is normal. 2. The bone mineral density of the left femoral neck is mildly decreased. 3. The bone mineral density of the left total hip is normal. 4. Overall, the above findings are diagnostic of low bone mass (osteopenia) by WHO criteria. 5. Based on the FRAX fracture risk model, the 10-year probability for major osteoporotic fracture is 12% and that for hip fracture is 2.6%. This 10-year fracture risk estimate was calculated using the risk factors noted in the history above, along with the femoral neck bone density. FRAX is intended to help guide treatment decisions in men over age 50 and postmenopausal women with low bone mass (osteopenia). The National Osteoporosis Foundation (NOF) recommends that FDA-approved medical therapies be considered in postmenopausal women and men age 50 years and older with osteoporosis and those with low bone mass whose 10-year fracture probability by FRAX is >= 20% for major osteoporotic fracture or >= 3% for hip fracture. However, all treatment decisions require clinical judgment and consideration of individual patient factors, including patient preferences, comorbidities, previous drug use, risk factors not captured in the FRAX model (e.g., frailty, falls, vitamin D deficiency, increased bone turnover, interval significant decline in bone density) and possible under- or overestimation of fracture risk by FRAX. General comments regarding interpretation of bone density measurements: A) In children, premenopausal woman and males under age 50 not at increased risk for fractures only Z-scores, not T-scores are used to indicate risk. A Z-score above -2.0 is defined as within the expected range for age and Z-score at or less than -2.0 is below the expected range for age . A Z-score below the expected range for age in a patient with recent fractures and/or chronic corticosteroid treatment is consistent with a diagnosis of osteoporosis. B) In post menopausal women and males over 50, comparison of the measured bone mineral density with the average value in young normal subjects (the T-score ) has been found to be useful in assessing fracture risk. Fracture risk approximately doubles for each 1.0 standard deviation (SD) in individual's hip or spine bone mineral density is below the average value of young normal subjects. The World Health Organization (WHO) has defined T-scores of -1.0 to -2.5 as diagnostic of low bone mass (OSTEOPENIA), and T-scores of -2.5 or lower to be diagnostic of OSTEOPOROSIS, based on the site of lowest bone density. Note that there will be a change in reporting format and reference databases as patients move from the younger population (group A) to the older population (group B) The National Osteoporosis Foundation (www.nof.org) recommends adequate intake of calcium and vitamin D and regular weight-bearing exercise in all patients. They recommend pharmacologic treatment in postmenopausal women and men age 50 and older presenting with any of the followin) Osteoporosis, after appropriate evaluation to exclude secondary causes. 2) A hip or vertebral (clinical or radiographic) fracture, regardless of the bone density. 3) Low bone mass (Osteopenia) and one or more of: other prior fractures, secondary causes associated with high risk of fracture (such as glucocorticoid use or total immobilization), or computed high risk of fracture (10-yr probability of hip fracture >= 3% or a 10-yr probability of any major osteoporosis-related fracture >= 20% based on the [place].-adapted WHO algorithm), available at http://www.shef.ac.uk/FRAX). Dictated by: Devan Capone MD PHD The radiology attending physician has personally reviewed this study, and had reviewed and/or edited this written report and agrees with it. Electronically signed by: Kyaw Novak M.D. Cortez Moya MD IMG DXA PROCEDURES Final Resu lt from Last 3 Months or Most Recently Relevant to [place] [address] MEDICARE [facility] [place] [place] [address] MEDICARE [facility] [place] [address] [address] [facility] [place] [address] MEDICARE [facility] Advance Directives For more information, please contact: [phone] * Full Code (Latest Code Status on File) Date Activated Date Inactivated Comments 06/30/2022 6:25 AM 06/30/2022 2:05 PM * Full Code Date Activated Date Inactivated Comments 06/09/2022 7:49 AM 06/09/2022 4:16 PM * Full Code Date Activated Date Inactivated Comments 02/06/2021 9:23 AM 02/06/2021 9:35 PM Care Teams Security Guards Dispatcher Relationship Specialty Start Date End Date Cortez Moya MD PCP - General 11/17/17
--- OUTSIDE RECORDS SUMMARY | 2024-12-07 08:11 | XMS_ITS | Continuity of Care Document ---
Author Organization [facility] Address [address] [place] [address] Phone Care Team Providers Care Sampler Tester Name Role Phone Graciela Hadley Unavailable Unavailable Procedures Procedure Date Office/outpatient Visit, Est Office/outpatient Visit, Est Refraction Visual Field Examination(s) Office/outpatient Visit, Est Optic Nerve Topography Optic Nerve Topography Eye Exam & Treatment Refraction Fundus Photography W/ Report Visual Field Examination(s) Eye Exam Established Pt Visual Field Examination(s) Office/outpatient Visit, Est Fundus Photography W/ Report Office/outpatient Visit, Est Advance Directives Directive Yes / No Effective Date File Name No Information Encounters Encounter Description Practice Location Reason(s) For Visit Diagnoses Date Provider Providers Copied on Encounter Office/outpat ient Visit, [facility], [address], [place], [place], [address], [place] tel:[phone] [facility] No Information 0-201 0 Leonie Owens. [address], [place], [address], [place]. tel:[phone] Office/outpat ient Visit, [facility], [address], [place], [place], [address], [place] tel:[phone] [facility] No Information Apr-0 6-201 0 Leonie Cox [address], [place], [place], [facility], . tel:[phone] [facility], [address] [place] [address] [address], [place], [place], [address], [place] tel:[phone] [facility] No Information Mar-0 1-201 0 Leonie Cox [address], [place], [facility], . tel:[phone] Referring Provider: Graciela Jung, [address], [place], [facility]. tel:[phone] Office/outpat ient Visit, [facility], [address] [place] [address] [address], [place], [place], [address], [place] tel:[phone] [facility] No Information Aug-0 4-200 9 Leonie Cox [address], [place], [facility], [place]. tel:[phone] [facility], [address] [place] [address] [address], [place], [place], [address], [place] tel:[phone] [facility] No Information Nov-2 5-200 8 Leonie Cox [address], [place], [facility], [place]. tel:[phone] Referring Provider: Graciela Jung, [address], [place], [facility]. tel:[phone] [facility], [address], [place], [place], [address], [place] tel:[phone] [facility] No Information Nov-1 8-200 8 Leonie Cox [address], [place], [facility], [place]. tel:[phone] Referring Provider: Graciela Jung, [address], [place], [facility]. tel:[phone] [facility], [address] [place] [address] [address], [place], [place], [address], [place] tel:[phone] [facility] No Information 8 Leonie Cox [address], [place], [facility], [place]. tel:[phone] Referring Provider: Graciela Jung, [address], [place], [facility]. tel:[phone] [facility], [address] [place] [address] [address], [place], [place], [address], [place] tel:[phone] [facility] No Information 7 Leonie Owens. [address], [place], [facility], [place]. tel:[phone] [facility], [address], [place], [place], [address], [place] tel:[phone] [facility] No Information 7 [address], [place], [facility], [place]. tel:[phone] Referring Provider: Graciela Jung, [address], [place], [facility]. tel:[phone] Office/outpat ient Visit, [facility], [address] [place] [address] [address], [place], [place], [address], [place] tel:[phone] [facility] No Information [address], [place], [address], [place]. tel:[phone] Referring Provider: Graciela Jung, [address] [facility] [address], [place], [address]. tel:[phone] Office/outpat ient Visit, [facility], [address], [place], [place], [address], [place] tel:[phone] [facility] No Information 7 Leonie Owens. [address] [facility] [address] , [address], [place], [address], [place]. tel:[phone] Family History Family Member Type Diagnosis Age At Onset No Information Payers Payer name Insurance type Covered alliance party ID Authoriza tion(s) No Information Social History Type Description Quantity Date Captured Comments Sex Female Smoking Status No Information Chief Complaint And Reason For Visit No Information Reason For Referral Reason For Referral No Information History Of Present Illness Encounter Date Complaint History Of Prese nt Illness No Information Functional Status Date Functional Assessmen t No Information Instructions Date Instruction Additional Infor mation No Information Assessments Type Assessment Date No Information Patient Care Teams Name Effective Dates (start - stop) Status Members No Information
--- OUTSIDE RECORDS SUMMARY | 2024-12-07 08:11 | XMS_ITS | Clinical Summary ---
Author Organization [facility] Address [address] [place] [address] Care Team Providers Care Crusher Loader Equipment Operator Name Role Phone Unavailable Primary Care Provider Unavailabl e Source Comments [facility],non-owned Affiliates and Associated Physician Practices is amultiple site organization consisting of ambulatory clinics and hospital sitesin [place], [place], [place] and [place]. This disclosure is being madepursuant to the Care Everywhere program and may not contain all information available regarding this patient. Last updated 18.[facility] Social History Tobacco Use Types Packs/Day Years Used Date Smoking Tobacco: Never Assessed Comments Unknown Sex and Gender Information Value Date Recorded Sex Assigned at Not on file Legal Sex Female 6:25 PM PERSONNEL PSYCHOLOGIST Gender Identity Not on file Sexual Orientation Not on file Plan of Treatment Health Maintenance Due Date Last Done Comments BONE DENSITY TESTING 1950 COLOGUARD (AGES 45-75) - COLON CA SCREENING 1950 COLON MONITORING 1950 COLONOSCOPY - COLON CA SCREENING 1950 CT COLONOGRAPHY - COLON CA SCREENING 1950 Colorectal Cancer Screening 1950 FIT - COLON CA SCREENING 1950 FLEX SIG - COLON CA SCREENING 1950 LIPID TESTING 1950 MAMMOGRAM 1950 MEDICARE AWV 12 MONTHS 1950 HEPATITIS C SCREENING 10/26/1968 DTAP/TDAP/TD VACCINES (1 - Tdap) 1969 PNEUMOCOCCAL VACCINE 50+ (1 of 1 - PCV) 2000 ZOSTER VACCINE (1 of 2) 2000 COVID-19 VACCINE (3 - season) 2024 09/30/2020, 08/28/2020 DEPRESSION SCREENING 07/25/2024 INFLUENZA VACCINE (Season Ended) 2025 05/03/2018, 05/29/2017, 04/23/2016, Additional history exists Respiratory Syncytial Virus (RSV) Vaccine Pt: or over 60 yrs (1 - 1-dose 75+ series) 2025 HEPATITIS B VACCINE Aged Out No longe r eligible based on patient's age to complete this topic HIB VACCINE Aged Out No longer eligi ble based on patient's age to complete this topic HPV VACCINE Aged Out No longer eligi ble based on patient's age to complete this topic MENINGOCOCCAL (Group B) VACCINE SHARED DECISION-MAKING Aged Out No longer eligible based on patient's age to complete this topic MENINGOCOCCAL GROUPS A/C/Y/W VACCINE Aged Out No longer eligible based on patient's age to complete this [place] [address] MEDICARE [facility]
--- OUTSIDE RECORDS SUMMARY | 2024-12-07 08:11 | XMS_ITS | Referral Summary ---
Author Organization [facility] Address [address] [place] [address] Care Team Providers Care Library Technology Instructor Name Role Phone Cortez Moya MD Primary Care Provider [phone] Encounters Date Type Department Care Team Description 11/28/2024 Results Follow-Up [facility] [address] [facility] [address] [facility] [address] [place] [address] Cortez Moya MD 11/27/2024 Orders Only [facility] [address] [facility] [address] [facility] [place] [address] Cortez Moya MD from Last 3 Months Allergies No known active allergies Medications latanoprost [...] Synthroid 75 mcg tablet TAKE 1 TABLET ER REGISTRAR BEFORE BREAKFAST 90 tablet 2 4 Active [...] (11/03/2022): Added automatically from request for surgery [id number] Assessment & Plan (01/17/2023 10:22 PM CDT): Krystal Paniagua is doing well after Bilateral Upper Eyelid [...] (11/03/2022): Added automatically from request for surgery [id number] HTN (hypertension) 01/27/2021 Assessment & Plan (11/29/2023 [...] (01/12/2021): Added automatically from request for surgery [id number] Primary osteoarthritis of right knee 08/06/2019 Overview (08/06/2019): Added automatically from request for surgery [id number] External hemorrhoids 07/03/2015 Hemorrhoids 07/03/2015 Dysphonia 10/09/2014 Assessment & Plan (11/29/2023 10:29 AM CDT): Stable without change. Constipation 06/26/2012 Internal hemorrhoids with complication 1 Immunizations Immunization Administration Dates Next Due Influenza, Quadrivalent, Hig h Dose, Preservative Free, Intrr 04/17/2021,05/06/2020 Influenza, Trivalent, High D ose, Split, Preservative Free, Intramuscular 05/03/2018,05/29/2017,05/29/2015,04/25 Influenza, Trivalent, Preser vative Free, Intramuscular 04/23/2016 Influenza, Unspecified 04/27/2023 Moderna SARS-CoV-2 Monovalen t Vaccination (12+ YRS) 09/30/2020,08/28/2020 ZOSTER LIVE 02/07/2017 ZOSTER Recombinant 03/24/2019,12/05/2018 Social History Tobacco Use Types Packs/Day Years [...] on file Legal Sex Female 9:03 PM RECEIPT AND REPORT CLERK Gender Identity Female 05/27/2021 3:39 PM CDT Sexual Orientation Straight 05/27/2021 3: 39 PM CDT Occupation Industry Job Start Date Job End Date retired Not on file Not on file Not on file Last Filed Vital Signs Vital Sign Reading Time Taken Comments Blood Pressure 156/87 06/12/2024 9:22 AM RECEIPT AND REPORT CLERK Pulse 62 06/12/2024 9:22 AM RECEIPT AND REPORT CLERK Temperature 36 C (96.8 F) 12/01/2022 2:10 PM CDT Respiratory Rate 18 12/01/2022 2:50 PM CDT Oxygen Saturation 97% 12/01/2022 2:50 PM CDT Inhaled Oxygen Concentration - - Weight 93.7 kg (206 lb 9.6 oz) 06/12/2024 9:22 A M RECEIPT AND REPORT CLERK Height 170.2 cm (5' 7 ) 06/12/2024 9:22 AM RECEIPT AND REPORT CLERK Body Mass Index 32.36 06/12/2024 9:22 AM RECEIPT AND REPORT CLERK Plan of Treatment Not on file Medical Devices Implanted Type Area Fixed Income Portfolio Manager Device Identifier Shelf Expiration Date Model / Serial / Lot [employer] 3122-040 Smartset Medium Viscosity Cement 40gm Bone Sterile - Sna - [id number] Implanted:Qty: 1 on 02/06/2021 by Fredy Whiting MD at [facility] Bone Cement Left: Knee [employer] 04/23/2022 3122-040 / NA / [id number] [employer] 6197-9-010 Simplex P Full Dose Radiopaque Preblend Cement Bone Tobramycin - Sna - [id number] Implanted:Qty: 1 on 06/12/2021 by Fredy Whiting MD at [facility] Bone Cement Right: Knee [employer] 08/24/2022 6197-9-0 10 / NA / [id number] [employer] Lens Tecnis Eyhance Iol [id number] - [id number] - [id number] Implanted:Qty: 1 on 06/09/2022 by Shorty Jones MD at [facility] Lens Left: Eye [employer] [id number] 10/08/2024 [id number] 20 / [id number] Description:DIB00 22.0D Left eye [employer] Lens Tecnis Eyhance Iol [id number] - [id number] - [id number] Implanted:Qty: 1 on 06/30/2022 by Shorty Jones MD at [facility] Lens Right: Lens [employer] [id number] 04/25/2025 [id number] 25 / [id number] / [employer] 827447-3 Insert Tibial 5 9mm Knee X3 Unicompartmental Onlay Nile - Sna - [id number] Implanted:Qty: 1 on 02/06/2021 by Fredy Whiting MD at [facility] Other - see comments Left: Knee [employer] [id number] 10/16/2025 116338-0 / NA / [id number] Description:Implant pause pe rformed prior to implant being opened to sterile field [employer] [id number] Bsplt Tibial 5 Knee Left Medial Right Lat Mck System - Sna - [id number] Implanted:Qty: 1 on 02/06/2021 by Ferdy Whiting MD at [facility] Other - see comments Left: Knee [employer] 11/21/2025 [id number] / NA / [id number] Description:Implant pause pe rformed prior to implant being opened to sterile field [employer] [id number] Cmpnt Fem 6 Std Knee Condyle Left Medial Right Lat - Sna - [id number] Implanted:Qty: 1 on 02/06/2021 by Fredy Whiting MD at [facility] Other - see comments Left: Knee [employer] [id number] / NA / [id number] Description:Implant pause pe rformed prior to implant being opened to sterile field [employer] 935292-1-D Insert Mck Tibial X3 Onlay Size 5 X 9mm - Sna - [id number] Implanted:Qty: 1 on 06/12/2021 by Fredy Whiting MD at [facility] Other - see comments Right: Knee [employer] [id number] 10/29/2025 980320-1 -E / NA / [id number] Description:Implant pause pe rformed prior to implant being opened to sterile field. [employer] 475175 Bsplt Tibial Restoris 5 Knee Right Medial Left Lat Strl Mck - Sna - [id number] Implanted:Qty: 1 on 06/12/2021 by Fredy Whiting MD at [facility] Other - see comments Right: Knee [employer] 12/20/2024 [id number] / NA / [id number] Description:Implant pause pe rformed prior to implant being opened to sterile field. [employer] 926082 Cmpnt Fem 6 Std Knee Condyle Right Medial Left Lat - Sna - [id number] Implanted:Qty: 1 on 06/12/2021 by Fredy Whiting MD at [facility] Other - see comments Right: Knee [employer] 11/12/2025 [id number] / NA / [id number] Description:Implant pause pe rformed prior to implant being opened to sterile field. Explanted Type Area Fixed Income Portfolio Manager Device Identifier Shelf Expiration Date Model / Serial / Lot [employer] [id number] 4mm 140mm Knee Straight Pin Fixation Sterile - Sna - [id number] Explanted:Qty: 1 on 06/12/2021 at [facility] Pin Right: Knee [employer] [id number] 02/17/2026 [id number] / NA / [id number] Description:Used for procedu re and removed at end of case [employer] 800759 4mm 110mm Pin Fixation Sterile - Sna - [id number] Explanted:Qty: 1 on 06/12/2021 by Fredy Whiting MD at [facility] Pin Right: Knee [employer] [id number] 10/16/2025 987407 / NA / [id number] Description:Used for procedu re and removed at [...] Recently Relevant to Health Maintenance [place] [address] MEDICARE [facility] [place] [address] MEDICARE [facility] [place] [address] MEDICARE [facility] [place] [address] [place] [address] MEDICARE [facility] Advance Directives For more information, please contact: [phone] * Full Code (Latest Code Status on File) Date Activated Date Inactivated Comments 06/30/2022 6:25 AM 06/30/2022 2:05 PM * Full Code Date Activated Date Inactivated Comments 06/09/2022 7:49 AM 06/09/2022 4:16 PM * Full Code Date Activated Date Inactivated Comments 02/06/2021 9:23 AM 02/06/2021 9:35 PM Care Teams Library Technology Instructor Relationship Specialty Start Date End Date Cortez Moya MD PCP - General 11/17/17
--- OUTSIDE RECORDS SUMMARY | 2024-12-07 08:11 | XMS_ITS | Clinical Summary ---
Author Organization [facility] Address [address] [place] [address] Care Team Providers Care Manager Lvn Name Role Phone Unavailable Primary Care Provider Unavailabl e Social History Tobacco Use Types Packs/Day Years Used Date Smoking Tobacco: Never Assessed Comments Unknown Sex and Gender Information Value Date Recorded Sex Assigned at Not on file Legal Sex Female 7:23 PM CDT Gender Identity Not on file Sexual Orientation Not on file Plan of Treatment Health Maintenance Due Date Last Done Comments Colorectal Cancer Screening Colonoscopy (10 Years) 1950 Hepatitis C 1968 DTaP, Tdap and Td Vaccines ( 1 - Tdap) 1969 Mammogram Screening 1990 Pneumococcal Vaccine: 50+ Ye ars (1 of 1 - PCV) 2000 Zoster Vaccines (1 of 2) 2000 Dexa Scan (General) 11/01/2015 COVID-19 Vaccine (2023-2 5 season) 2024 RSV Immunization or 60+ Years (1 - 1-dose 75+ series) 2025 Meningococcal B Vaccine Aged Out No l onger eligible based on patient's age to complete this topic Meningococcal Vaccine Aged Out No yohan aidan eligible based on patient's age to complete this topic RSV Immunizations Under 20 Months Aged Out No longer eligible based on patient's age to complete this topic
--- OUTSIDE RECORDS SUMMARY | 2024-12-07 08:17 | XMS_ITS | Continuity of Care Document ---
Author Organization [facility] Address [address] [place] [address] Phone Care Team Providers Care Oracle Technical Developer Name Role Phone Graciela Hadley Unavailable Unavailable [...] Providers Copied on Encounter Office/outpat ient Visit, [facility] [address], [place], [place], [address], [place] tel:[phone] [facility] No Information 0-201 0 Leonie Owens. [address], [place], [address], [place]. tel:[phone] Office/outpat ient Visit, [facility], [address], [place], [place], [address], [place] tel:[phone] [facility] No Information Apr-0 6-201 0 Leonie Cox [address], [place], [place], [facility], . tel:[phone] [facility], [address] [place] [address] [address], [place], [place], [address], [place] tel:[phone] [facility] No Information Mar-0 1-201 0 Leonie Cox [address], [place], [facility], . tel:[phone] Referring Provider: Graciela Jung, [address], [place], [facility]. tel:[phone] Office/outpat ient Visit, [facility], [address] [place] [address] [address], [place], [place], [address], [place] tel:[phone] [facility] No Information Aug-0 4-200 9 Leonie Cox [address], [place], [place], [facility], [place]. tel:[phone] [facility], [address] [place] [address] [address], [place], [place], [address], [place] tel:[phone] [facility] No Information Nov-2 5-200 8 Leonie Cox [address], [place], [facility], [place]. tel:[phone] Referring Provider: Graciela Jung, [address], [place], [facility]. tel:[phone] [facility], [address], [place], [place], [address], [place] tel:[phone] [facility] No Information Nov-1 8-200 8 Leonie Cox [address], [place], [facility], [place]. tel:[phone] Referring Provider: Graciela Jung, [address], [place], [facility]. tel:[phone] [facility], [address] [place] [address] [address], [place], [place], [address], [place] tel:[phone] [facility] No Information 8 Leonie Cox [address], [place], [facility], [place]. tel:[phone] Referring Provider: Graciela Jung, [address], [place], [facility]. tel:[phone] [facility], [address] [place] [address] [address], [place], [place], [address], [place] tel:[phone] [facility] No Information 7 Leonie Owens. [address], [place], [facility], [place]. tel:[phone] [facility], [address], [place], [place], [address], [place] tel:[phone] [facility] No Information 7 [address], [place], [facility], [place]. tel:[phone] Referring Provider: Graciela Jung, [address], [place], [facility]. tel:[phone] Office/outpat ient Visit, [facility], [address] [place] [address] [address], [place], [place], [address], [place] tel:[phone] [facility] No Information [address], [place], [address], [place]. tel:[phone] Referring Provider: Graciela Jung, [address] [facility] [address], [place], [address]. tel:[phone] Office/outpat ient Visit, [facility], [address], [place], [place], [address], [place] tel:[phone] [facility] No Information 7 Leonie Owens. [address] [facility] , [address], [place], [address], [place]. tel:[phone] Family History Family Member Type Diagnosis Age At Onset No Information Payers Payer name Insurance type Covered democrat ID Authoriza tion(s) No Information Social History [...]
--- OUTSIDE RECORDS SUMMARY | 2024-12-07 08:17 | XMS_ITS | CONTINUITY OF CARE DOCUMENT ---
Author Name veronica martin Address Unknown Organization [facility] Address [address] [place] [address] [address] [place] [address] Phone [phone] Care Team Providers Care Time Recorder Name Role Phone veronica martin Unavailable Unavailable
[2024-12-07 08:19] VITALS: BP 144/66; PULSE 78; RESP 16; TEMP 36.9; O2SAT 94
== END 2024-12-07 08:56 | disposition home or self-care (01) ==
PROVIDERS: Emergency Provider Nurse Practitioner; PCP Internal Medicine
DX: J40 Bronchitis, not specified as acute or chronic (principal); K21.9 Gastro-esophageal reflux disease without esophagitis; E07.9 Disorder of thyroid, unspecified; F41.9 Anxiety disorder, unspecified
CPT/HCPCS: 71046; 99213; G0463